=== PATIENT | male | born 1950 | race Caucasian/White ===

== ENCOUNTER 2017-09-05 15:28 | Inpatient (IN) | payer MEDICARE ==
[~2017-09-05] VITALS: Ht 174 cm; Wt 69.2 kg
--- NOTE | ~2017-09-05 | PN ---
PATIENT:WARD HARTLEY MEDICAL RECORD: [id number] LOCATION:[facility] ADMISSION DATE: 09/05/17 PROGRESS NOTE DATE OF SERVICE: 09/11/2017 SUBJECTIVE: The patient's case was discussed with staff. He has no new complaint. OBJECTIVE: The patient denies intent to harm himself or others. He generally tolerates his medicines well. ASSESSMENT: No change in diagnoses. PLAN: Supportive and educational interventions were made. Long-term prognosis is guarded. He has no thoughts of harming himself or others and will be transitioned out of the hospital today at his request. Follow up will be with his primary care physician. TRANSINT:[id number] Voice Confirmation ID: [id number] DOCUMENT ID: [id number] CHAPARRO ANAYA MD at 1508 CC: [id number] DICTATION DATE: 09/11/17 1455 GOLD LEAF GILDER: 09/11/17 1642 DIS IN 09/11/17 [id number] [place] [address]
--- NOTE | ~2017-09-05 | PN ---
PATIENT:WARD HARTLEY MEDICAL RECORD: [id number] LOCATION:[facility]112 ADMISSION DATE: 09/05/17 PROGRESS NOTE DATE OF SERVICE: 09/07/2017 SUBJECTIVE: The patient's case was discussed with staff. He has no new complaint. OBJECTIVE: The patient is in good behavioral control with limited insight about his condition. He does tolerate his medicines well. Eye contact is fair. Concentration is fair. ASSESSMENT: No change in diagnoses. PLAN: The patient has no thoughts of harming himself or others. He denies that he ever threatened to harm his , which contradicts things that have already been documented at the time of admission. His is going to come this afternoon, but I will not be here. The social economist is going to talk with her and see if we can obtain more information. The patient wants to go home. I have told him he is going to have to wait either voluntarily or involuntarily until after we have an opportunity to meet with his . TRANSINT:[id number] Voice Confirmation ID: [id number] DOCUMENT ID: [id number] CHAPARRO ANAYA MD at 0754 CC: [id number] DICTATION DATE: 09/07/17 1333 PUBLIC SERVICE ADMINISTRATOR: 09/07/17 1338 ADM IN [address] [id number] [place] [address]
--- NOTE | ~2017-09-05 | DS ---
PATIENT:WARD HARTLEY :46 MEDICAL RECORD: [id number] DISCHARGE SUMMARY ADMISSION DATE: 09/05/17 DISCHARGE DATE: 09/11/17 IDENTIFYING DATA: The patient is 66 years old and he was admitted to the hospital on a voluntary basis because of suicidal statements. The patient is recently retired and had been arguing with his . He threatened both her and himself with a gun. The police brought him to the Emergency Room at [facility]. He denied being depressed but endorsed a lot of depressive symptoms and was subsequently admitted here. He apparently has been arguing a lot with his . He is seriously ill with colorectal and thyroid cancer and they are arguing and fighting. HOSPITAL COURSE: The patient was admitted to the hospital and fully evaluated from both the medical, psychological, and social standpoint. He was found to be significantly and seriously depressed. He was treated with antidepressant medicines. The patient also had clear evidence of cognitive impairment and was tested by Dr. Paula Clinton and tested in the oeoaskcy-ho-egxs level of impairment. He was treated with both antidepressant and memory-enhancing medications. His met with the social work supervisor and the patient. There was a reconciliation. The patient has been under a great deal of stress with his cancer and some financial problems as well as struggling with trying to function in a world that becomes increasingly confusing as his dementia worsens. He was subsequently transferred home with her. DISCHARGE DIAGNOSES: AXIS I: Major depression, moderate severity without psychotic features, single episode. Senile dementia of the Alzheimer's type. AXIS II: None. AXIS III: Hypertension, thyroid cancer, colorectal cancer, and urinary tract infection. AXIS IV: Moderate stressors. AXIS V: Global Assessment Of Functioning is 50. PLAN: At the time of discharge, the patient was not acutely dangerous to himself or others. Firearms have been removed from the house and the patient was scheduled for home health and follow up with his primary care physician and oncologist. Long-term prognosis is guarded. There is no evidence of acute or direct dangerousness at the time of discharge. TRANSINT:[id number] Voice Confirmation ID: [id number] DOCUMENT ID: [id number] CHAPARRO ANAYA MD at 1417 CC: [id number] DICTATION DATE: 09/13/17 1538 BR[employer]ER [employer] PRODUCE: 09/14/17 1026 DIS IN 09/11/17 [facility] [address] [place] [address]
--- NOTE | ~2017-09-05 | PN ---
PATIENT:WARD HARTLEY MEDICAL RECORD: [id number] LOCATION:[facility] Alexa112 ADMISSION DATE: 09/05/17 PROGRESS NOTE DATE OF SERVICE: 09/10/2017 SUBJECTIVE: The patient's case was discussed with staff. He has no new complaint. OBJECTIVE: The patient was found to be demented based on testing from Dr. Clinton. Obviously someone had thought this prior to this testing and he was started on Aricept, which caused some appetite loss last week. I had initially started him on Aricept, thinking that perhaps it just was not given enough with an opportunity to work, but the patient is pretty much against it and so I am going to discontinue it and we will start him on Namenda. He was suicidal when he came to the hospital and he is not suicidal now, but he currently is a little shocked by the news that I have given him, so I do not think that another day or perhaps 2 in the hospital to make sure he is safe is unreasonable. This will also give me an opportunity to start him on Namenda. TRANSINT:[id number] Voice Confirmation ID: [id number] DOCUMENT ID: [id number] CHAPARRO ANAYA MD at 1320 CC: [id number] DICTATION DATE: 09/10/17 1107 DANDY TENDER: 09/10/17 1146 ADM IN [id number] [place] [address]
--- NOTE | ~2017-09-05 | PN ---
PATIENT:WARD HARTLEY MEDICAL RECORD: [id number] LOCATION:[facility] LiuMarge ADMISSION DATE: 09/05/17 PROGRESS NOTE DATE OF SERVICE: 09/08/2017 SUBJECTIVE: The patient's case was discussed with staff. He has no new complaint. OBJECTIVE: The patient is in good behavioral control with limited insight about his condition. He tolerates his medicines well. ASSESSMENT: No change in diagnoses. PLAN: Current medicines and therapies have been reviewed. His long-term prognosis is guarded. Brief supportive and educational interventions were made. TRANSINT:[id number] Voice Confirmation ID: [id number] DOCUMENT ID: [id number] CHAPARRO ANAYA MD at 1007 CC: [id number] DICTATION DATE: 09/08/17 1433 FIELD SERVICE TECH: 09/08/17 1446 ADM IN [id number] [place] [address]
--- NOTE | ~2017-09-05 | PSY ---
PATIENT NAME:WARD HARTLEY MEDICAL RECORD: [id number] : 46 LOCATION:[facility] Alexa1126 ADMISSION DATE: 09/05/17 ACCOUNT: [id number] PSYCHIATRIC EVALUATION DATE OF EVALUATION: 09/06/17 IDENTIFYING DATA: The patient is 66 years old and he is admitted to the hospital on a voluntary basis. CHIEF COMPLAINT: Suicidal statements. HISTORY OF PRESENT ILLNESS: The patient is a very unfortunate man. He is 66 years old and recently retired. He has been arguing with his , threatened her and himself with a gun. The police brought him to the Emergency Room at [facility]. He denied being depressed, but endorses depressive symptoms and was subsequently admitted here. He tells me that he is arguing a lot with his that she is trying to do things for him that he can do for himself. He does not want her to do these things and then when he allows her to do them, he says that she gets mad, yells, curses, and screams at him. The patient is seriously ill. He has colorectal cancer and thyroid cancer. He recently had a urinary tract infection, and he recently was diagnosed by a neurologist with dementia and started on Aricept. PAST MEDICAL HISTORY: Significant for thyroid cancer, colorectal cancer, and a recent urinary tract infection. PAST PSYCHIATRIC HISTORY: Significant for recent diagnosis of Alzheimer disease. He denies any history of previous psychiatric problems that might have involved depression or anxiety. He has never been seen by a psychiatrist. He has never hurt anyone or himself. He has no history of drug or alcohol abuse. FAMILY PSYCHIATRIC HISTORY: Negative by the patient's account. ALLERGIES: SULFA. CURRENT MEDICATIONS: Aricept, Lopressor, Flomax, Feosol, Macrobid, Zantac, Ultram, Zyrtec, and multiple vitamins. SOCIAL HISTORY: The patient has been to one woman for many years. He has 4 children and 8 grandchildren. He is a retired otr van cdl truck driver. He has no history of drug or alcohol abuse. He has functioned well both socially and occupationally. MENTAL STATUS EXAMINATION: The patient is awake, alert and oriented to person, place, time and situation. His mood is depressed. His affect is constricted. Thought processes are circumstantial. Memory, concentration, and abstraction abilities are at least mildly impaired. He denies any intent to harm himself or others as well as psychotic symptoms. ASSETS: Supportive family members. LIABILITIES: Limited insight. DIAGNOSTIC IMPRESSION: AXIS I: Major depression, moderate severity, without psychotic features, single episode. Senile dementia of the Alzheimer's type. AXIS II: Deferred. AXIS III: Hypertension, thyroid cancer, colorectal cancer, urinary tract infection. AXIS IV: Severe stressors. AXIS V: Global assessment of functioning is 45. PLAN: At this time, the patient is admitted to the hospital secondary to suicidal threats. He was threatening his in addition to himself. He had a gun. The police responded, they brought him to the hospital rather than to longterm. He has pretty limited insight about his condition. He does reasonably well on bedside exam, but he may well have an underlying dementia. I am going to have Dr. Paula Clinton test him. I am also going to start him on antidepressant medication even though he does not think he needs antidepressant medication. His long-term prognosis is guarded. TRANSINT:[id number] Voice Confirmation ID: [id number] DOCUMENT ID: [id number] CHAPARRO ANAYA MD at 1303 CC: [id number] DICTATION DATE: 09/06/17 1140 TEXTILE TECHNOLOGIST: 09/06/17 1154 ADM IN [place] [id number] [place] [id number]
--- NOTE | ~2017-09-05 | PN ---
PATIENT:WARD HARTLEY MEDICAL RECORD: [id number] LOCATION:[facility]DY AlexaMarge ADMISSION DATE: 09/05/17 PROGRESS NOTE DATE OF SERVICE: 09/09/2017 SUBJECTIVE: The patient's case was discussed with staff. He has no new complaint. OBJECTIVE: The patient is in good behavioral control with limited insight about his condition. He does tolerate his medicines well. Eye contact is fair. Concentration is fair. ASSESSMENT: No change in diagnoses. PLAN: Supportive and educational interventions were made. Long-term prognosis is guarded. The patient was tested by Dr. Paula Clinton today. As suspected, he does have a dementia and it is moderate in its severity. I am going to start him on Aricept. TRANSINT:[id number] Voice Confirmation ID: [id number] DOCUMENT ID: [id number] CHAPARRO ANAYA MD at 1039 CC: [id number] DICTATION DATE: 09/09/17 1156 CALCULUS TUTOR: 09/09/17 1214 ADM IN [place] [id number] [place] [id number]
[2017-09-05 16:11] VITALS: BP 116/56
[2017-09-05] MEDS ORDERED: ARICEPT10 MG PO (16:39)
[2017-09-05] MEDS ORDERED: LOPRESSOR25 MG PO (16:41)
[2017-09-05] MEDS ORDERED: FLOMAX0.4 MG PO (16:41)
[2017-09-05] MEDS ORDERED: FERROUS SULFAT325 MG PO (16:45)
[2017-09-05] MEDS ORDERED: APRISO0.375 GM PO (16:46)
[2017-09-05] MEDS ORDERED: MACROBID100 MG PO (16:47)
[2017-09-05] MEDS ORDERED: ZANTAC150 MG PO (16:48)
[2017-09-05] MEDS ORDERED: ULTRAM50 MG PO (16:50)
[2017-09-05] MEDS ORDERED: MULTIPLE VITAMI1 TA1 PO (16:51)
[2017-09-05] MEDS ORDERED: ACETAMINOPHEN500 M1 PO (16:51)
[2017-09-05] MEDS ORDERED: ZYRTEC10 MG PO (16:51)
[2017-09-05 20:06] VITALS: BP 101/51
[2017-09-06 06:29] LABS: BASOPHILS 0.6 % (0-2); EOSINOPHILS 3.1 % (0-7); HEMATOCRIT 38.1 % (42.0-54.0); HEMOGLOBIN 12.9 g/dL (13.5-17.5); IMMATURE GRANULOCYTES 0.2 % (0-5); LYMPHOCYTES 13.6 % (15-50); MCH 29.7 pg (26.0-34.0); MCHC 33.9 g/dL (31.0-37.0); MCV 87.6 fL (80.0-100.0); MEAN PLATELET VOLUME 10.9 fL (7.4-10.4); MONOCYTES 7.5 % (2-11); PLATELET COUNT 82 10x3/uL (130-400); RBC 4.35 10x6/uL (4.20-6.10); RDW 16.2 % (11.5-14.5); WBC 6.4 10x3/uL (4.8-10.8)
[2017-09-06 06:57] LABS: ALBUMIN 2.9 g/dL (3.4-5.0); ALKALINE PHOSPHATASE 262 U/L (46-116); ALT (SGPT) 49 U/L (10-68); CALC OSMOLALITY 270 mosm/kg (275-300); CALCIUM 8.9 mg/dL (8.5-10.1); CARBON DIOXIDE 23.4 mmol/L (21.0-32.0); CHLORIDE - SERUM 106 mmol/L (98-107); CHOL - HDL RATIO 4.1 ratio (2.3-4.9); CHOLESTEROL, TOTAL 174 mg/dL (0-200); CREATININE - SERUM 0.9 mg/dL (0.6-1.3); GLUCOSE 91 mg/dL (74-106); HDL CHOLESTEROL 43 mg/dL (32-96); LDL CHOLESTEROL 115 mg/dL (0-100); LDL-HDL RATIO 2.7 ratio (1.5-3.5); POTASSIUM - SERUM 3.6 mmol/L (3.5-5.1); PROTEIN - SERUM 7.6 g/dL (6.4-8.2); SODIUM 135 mmol/L (136-145); THYROID STIMULATING HORMONE 5.59 uIU/mL (0.36-3.74); TRIGLYCERIDE 83 mg/dL (30-200); UREA NITROGEN 16 mg/dL (7-18); eGFR NON AFRICAN AMERICAN 89 mL/min (90-120)
[2017-09-06 07:38] LABS: PLATELET ESTIMATE DECREASED
[2017-09-06 08:09] VITALS: BP 108/63
[2017-09-06 08:12] VITALS: BMI 23.6
[2017-09-06 10:55] VITALS: Ht 174 cm; Wt 69.2 kg
[2017-09-06 19:26] VITALS: BP 110/55
[2017-09-07 07:31] LABS: VITAMIN D 25 HYDROXY 30.6 ng/mL (30.0-100.0)
[2017-09-07 07:36] VITALS: BP 110/72
[2017-09-07 08:21] LABS: FOLATE (FOLIC ACID) - SERUM 19.3 ng/mL (>3.0); RAPID PLASMA REAGIN Non Reactive (Non Reactive)
[2017-09-07 11:10] LABS: APPEARANCE CLOUDY (CLEAR); BACTERIA MODERATE /hpf (NONE SEEN); BILIRUBIN NEGATIVE (NEGATIVE); COLOR DK YELLOW (YELLOW); EPITHELIAL CELLS 0-5 /hpf (0-5); GLUCOSE NEGATIVE (NEGATIVE); KETONE NEGATIVE (NEGATIVE); MUCUS <1+ /lpf (NONE SEEN); NITRITE NEGATIVE (NEGATIVE); PROTEIN 3+ mg/dL (NEGATIVE); RED CELLS - URINE >50 /hpf (0-5); SPECIFIC GRAVITY 1.015 (1.005-1.020); UROBILINOGEN NORMAL (NORMAL)
[2017-09-07 19:45] VITALS: BP 107/63
[2017-09-08 08:05] VITALS: BP 102/60
[2017-09-08 19:31] VITALS: BP 101/51
[2017-09-09 09:35] VITALS: BP 107/54
[2017-09-09 22:32] VITALS: BP 102/41
[2017-09-10 08:18] VITALS: BP 99/65
[2017-09-10 19:57] VITALS: BP 112/52
[2017-09-11 07:48] VITALS: BP 105/59
[2017-09-11] MEDS ORDERED: MEGACE40 MG PO (14:51)
[2017-09-11] MEDS ORDERED: NAMENDA5 MG PO (14:52)
[2017-09-11] MEDS ORDERED: PAXIL10 MG PO (14:52)
[2017-09-11] MEDS ORDERED: VITAMIN D5000 UNIT PO (14:52)
== END 2017-09-11 17:10 | disposition home or self-care (01) | DRG 885 ==
LOC: D.PSYCH 15:28
PROVIDERS: Psychiatry & Neurology Psychiatry
DX: F32.1 Major depressive disorder, single episode, moderate (principal); F02.81 Dementia in other diseases classified elsewhere, unspecified severity, with behavioral disturbance; N39.0 Urinary tract infection, site not specified; R45.851 Suicidal ideations; G30.1 Alzheimer's disease with late onset; E55.9 Vitamin D deficiency, unspecified; D50.9 Iron deficiency anemia, unspecified; N40.0 Benign prostatic hyperplasia without lower urinary tract symptoms; I10 Essential (primary) hypertension